=== PATIENT | female | born 1980 | race Caucasian/White ===

== ENCOUNTER → 2024-09-12 | Outpatient (CLI) | payer BC ==
--- NOTE | 2024-09-12 09:15 | MR ---
EXAMINATION TYPE: MR shoulder LT wo con DATE OF EXAM: 09/12/2024 7:22 AM COMPARISON: None. CLINICAL INDICATION: Female, 44 years old with history of M25.512 SHOULDER PAIN, Right shoulder pain x 8 mos, no trauma. IV Contrast: cc (None if empty) TECHNIQUE: Multiplanar, multisequence imaging of the left shoulder is performed without contrast. FINDINGS: Rotator Cuff: Intact supraspinatus and infraspinatus tendons. Subscapularis tendon is heterogeneous a nd wavy on the axial images but this is less prominent on additional views. Rotator cuff muscle bulk is preserved. Acromioclavicular Joint: Within normal limits. Distal acromion morphology unremarkable. Glenohumeral Joint: No significant effusion. No significant spurring. Labrum: The labrum appears grossly intact given limitation of non-arthrogram study. Biceps Tendon: The long head of biceps is in normal location within bicipital groove. Bone marrow signal: No focal abnormal marrow signal is appreciated. Other: No additional significant abnormality is appreciated. IMPRESSION: Possible some tendinosis of the subscapularis tendon. No rotator cuff or labral tear is seen. [facility], , 09/12/2024 9:12 AM
== END | disposition home or self-care (01) ==
LOC: RADMRIMAIN 06:38
PROVIDERS: ATTEND Family Medicine
DX: M25.512 Pain in left shoulder (principal)